=== PATIENT | male | born 1955 | race Caucasian/White ===

== ENCOUNTER 2017-01-24 11:15 | Emergency (ER) | payer OTHER ==
[~2017-01-24] VITALS: Ht 167.6 cm; Wt 79.4 kg
[~2017-01-24 11:15] MED LIST: ATIVAN1 MG ORAL; GLUCOPHAGE500 MG ORAL; NORCO 5-325 TA1 EACH ORAL
[2017-01-24] MEDS ORDERED: Nitroglycerin Subl 0.4mg tab (Bottle Of 25) SL ONE (11:29)
[2017-01-24 11:34] VITALS: BP 194/110
[2017-01-24] MEDS: Nitroglycerin Subl 0.4mg tab (Bottle Of 25) SL PRN ×3 (11:44→11:48)
[2017-01-24] MEDS ORDERED: Aspirin Baby 81mg ORAL ONE ×2 (11:45)
[2017-01-24 12:04] VITALS: BP 194/110
--- NOTE | 2017-01-24 13:03 | Emergency Room Report ---
History of Present Illness General Chief Complaint: Chest Pain Source: Patient, Family Member Present Illness HPI Patient presents emergency department today complaint chest pain that has been going on for one day. Patient states that the chest pain is dull achy since 9 AM associated with some mild shortness of breath. Patient does not have a history of cardiac disease although patient does have diabetes hypertension. Patient denies any cough fever or leg pain or leg swelling. No other complaints are noted. Symptoms noted to be severe. Because of patient's symptoms patient finally came into the emergency department for further evaluation.No other modifying factors. No other associated signs and symptoms. No other complaints were noted. Allergies: Coded Allergies: No Known Allergies (Unverified , 04/07/12) Patient History Past Medical History: DM, HTN Past Surgical History: none Pertinent Family History: none Social History: Denies: alcohol use, drug use, smoking Reviewed Nursing Documentation: PMH: Agreed, PSxH: Agreed Nursing Documentation-PMH Past Medical History: No History, Except For Hx Hypertension: Yes Hx Diabetes: Yes Review of Systems All Other Systems: negative except mentioned in HPI Physical Exam Vital Signs Date Time Temp Pulse Resp B/P Pulse Ox O2 Delivery O2 Flow Rate FiO2 01/24/17 11:26 97.5 86 22 194/110 100 Room Air Sp02 EP Interpretation: reviewed, normal General Appearance: alert, moderate distress - seems comfortable Head: atraumatic Eyes: bilateral eye normal inspection ENT: normal ENT inspection, hearing grossly normal, normal voice Neck: normal inspection, full range of motion, supple, no bony tend Respiratory: normal inspection, lungs clear, normal breath sounds, no respiratory distress, no retraction, no wheezing Cardiovascular #1: regular rate, rhythm, no edema Gastrointestinal: normal inspection, normal bowel sounds, non tender, soft, no guarding, no hernia Genitourinary: no CVA tenderness Musculoskeletal: normal inspection, back normal, normal range of motion Neurologic: normal inspection, alert, responsive, speech normal Psychiatric: normal inspection, judgement/insight normal, mood/affect normal Skin: normal inspection, normal color, no rash Procedures Critical Care Time Critical Care Time Patient had a critical medical condition which untreated could potentially result in life or limb threatening injury. Total critical care time excluding procedures was approximately 35 minutes. Medical Decision Making Diagnostic Impression: Primary Impression: Acute MT Additional Impression: Hypertensive urgency, malignant ER Course Patient presented to the emergency department today complaining of chest pain. Differential diagnoses include acute coronary syndrome, pulmonary embolism, pneumothorax, chest wall pain, pleurisy, pericarditis, acute anxiety reaction just to name a few. Given the severity of the patient's presentation I felt this is a highly complex patient. Patient's EKG showed evidence of acute ST segment elevation MT. Therefore I felt the patient require emergency procedure treat this acute MT. Case was discussed with Dr. Kd Pierre at [facility] who very graciously agreed to except the patient. Patient was transferred via emergency 911 system to [facility] for further treatment. Patient was given nitroglycerin with improvement and patient's pain as well as elevated blood pressure. EKG Diagnostic Results Rate: normal Rhythm: NSR ST Segments: other - ST segment elevation in leads 1 and aVL Rhythm Strip Diag. Results EP Interpretation: yes Rhythm: NSR, no PVC's, no ectopy Last Vital Signs Date Time Temp Pulse Resp B/P Pulse Ox O2 Delivery O2 Flow Rate FiO2 01/24/17 12:04 97.5 89 22 194/110 100 Room Air Status: unchanged Disposition: XFER [facility] Condition: Critical Referrals: EMPLOYEE TH NADER MCLEAN (PCP) SIMI LEBRON M.D. Jan 24, 2017 13:03
== END 2017-01-24 12:07 | disposition short-term general hospital (02) ==
LOC: EMR 11:47
DX: I21.3 ST elevation (STEMI) myocardial infarction of unspecified site (principal); I16.0 Hypertensive urgency; E11.9 Type 2 diabetes mellitus without complications; I10 Essential (primary) hypertension
CPT/HCPCS: 93005